=== PATIENT | male | born 1960 | race Caucasian/White ===

== ENCOUNTER 2019-04-04 01:27 | Emergency (ER) | payer MEDICAID ==
[~2019-04-04] VITALS: Ht 185.4 cm; Wt 181.8 kg
[~2019-04-04 01:27] MED LIST: HYDR-4353 PO; INSU100V2 SQ; LEVO100T9 PO; METO10TA3 PO; METO50TA16 PO; PIOG30TA71 PO; PRAV40TA3 PO
--- NOTE | 2019-04-04 01:41 | NUR ---
Dr. Jones notified of patient and patient's condition.
[2019-04-04] MEDS ORDERED: CALC667T6 PO (01:49)
[2019-04-04] MEDS ORDERED: FURO-150 PO (01:49)
[2019-04-04] MEDS ORDERED: HYDR-4069 PO (01:49)
[2019-04-04] MEDS ORDERED: LEVO150T8 PO (01:49)
[2019-04-04] MEDS ORDERED: INSU100I5 SQ (01:49)
[2019-04-04] MEDS ORDERED: CARV-50 PO (01:49)
[2019-04-04] MEDS ORDERED: ALLO100T PO (01:49)
[2019-04-04] MEDS ORDERED: CALC0.2511 PO (01:49)
[2019-04-04] MEDS ORDERED: HYDR-4353 PO (01:49)
[2019-04-04] MEDS ORDERED: ondansetron/PF 4mg/2ml inj IV ONE (02:25)
[2019-04-04] MEDS ORDERED: morphine 4 MG/ML inj SYRINge IV ONE (02:25)
[2019-04-04 02:39] LABS: BASOPHILS # (AUTO) 0.1 X10'3 (0-0.2); BASOPHILS % (AUTO) 0.7 % (0-1); EOSINOPHILS # (AUTO) 0.3 X10'3 (0-0.9); EOSINOPHILS % (AUTO) 3.7 % (0-6); HEMATOCRIT 23.1 % (42.0-52.0); HEMOGLOBIN 7.5 g/dl (14.0-17.9); LYMPHOCYTES # (AUTO) 1.2 X10'3 (1.1-4.8); LYMPHOCYTES % (AUTO) 16.9 % (21-51); MEAN CORPUSCULAR HEMOGLOBIN 30.7 PG (27.0-31.0); MEAN CORPUSCULAR HGB CONC 32.7 g/dL (33.0-36.5); MEAN CORPUSCULAR VOLUME 93.8 FL (78-98); MEAN PLATELET VOLUME 9.6 FL (7.4-10.4); MONOCYTES # (AUTO) 0.4 X10'3 (0-0.9); MONOCYTES % (AUTO) 5.9 % (2-12); NEUTROPHILS # (AUTO) 5.2 X10'3 (1.8-7.7); NEUTROPHILS % (AUTO) 72.8 % (42-75); PLATELET COUNT 190 X10'3 (140-440); RED BLOOD COUNT 2.46 X10'6 (4.70-6.10); RED CELL DISTRIBUTION WIDTH 14.2 % (11.5-14.5); WHITE BLOOD COUNT 7.2 X10'3 (4.5-11.0)
[2019-04-04 02:40] LABS: PARTIAL THROMBOPLASTIN TIME 32 SECONDS (22-32)
[2019-04-04 02:45] LABS: ALBUMIN 2.2 G/DL (3.4-5.0); ALBUMIN/GLOBULIN RATIO 0.5 (1.1-1.5); ALKALINE PHOSPHATASE 72 IU/L (46-116); ANION GAP 23 (8-16); ASPARTATE AMINO TRANSFERASE 8 U/L (10-37); BILIRUBIN,TOTAL 0.3 MG/DL (0.1-1.0); BLOOD UREA NITROGEN 142 MG/DL (7-18); CALCIUM 6.3 MG/DL (8.5-10.1); CHLORIDE 97 MMOL/L (99-107); GLUCOSE 118 MG/DL (70-104); POTASSIUM 4.4 MMOL/L (3.5-5.1); SODIUM 138 MMOL/L (135-145); TOTAL CARBON DIOXIDE 17.7 MMOL/L (24-32)
[2019-04-04 02:51] LABS: ALANINE AMINOTRANSFERASE < 6 U/L (12-78); BUN/CREATININE RATIO 5.8 (5.4-32.0); CREATININE 24.49 MG/DL (0.60-1.10); ETHANOL < 0.010 GM/DL (0.0-0.010); eGFR 2 ML/MIN
--- NOTE | 2019-04-04 03:05 | NUR ---
Spoke to patient's nephew Aleksandar at the patient's request. He is aware of the pending transfer to [facility].
--- NOTE | 2019-04-04 03:09 | NUR ---
Patient resting comfortably in bed and is updated on POC.
[2019-04-04] MEDS ORDERED: normal saline 1000ML IV soln IVB ONE (03:30)
[2019-04-04] MEDS ORDERED: morphine 4 MG/ML inj SYRINge IV PRN (03:35)
--- NOTE | 2019-04-04 04:18 | NUR ---
Patient's nephew Aleksandar updated that patient was unable to transfer to [facility] and will rather be transferred to [facility] in [place].
--- NOTE | 2019-04-04 04:38 | NUR ---
Patient sleeping comfortably and is in no distress.
--- NOTE | 2019-04-04 05:18 | NUR ---
Patient continues to sleep comfortably.
--- NOTE | 2019-04-04 05:46 | NUR ---
Patient awake and requests ice chips which are provided with Dr. Jones's approval. Patient updated on approximate transportation time. He has no other requests at this time.
--- NOTE | 2019-04-04 07:50 | NUR ---
pt had a witnessed seizure. pt was sitting up in bed. pt stated he felt hot and nausea. nasopharyngeal airway placed 8.0 1 mg ativan given. pt sunctioned. non-rebreather placed on pt. 02 sat 100%. Addendum: 04/04/19 at 0825 by LVLASTELIC seizure last 2-3 min broke with adm of ativan
[2019-04-04] MEDS ORDERED: LORazepam 2 mg/ml vial ONE (07:51)
[2019-04-04] MEDS ORDERED: levetiracetam inj 1,500 MG in normal saline 100ml IV soln 85 ML IV SCH (08:00)
[2019-04-04] MEDS ORDERED: LORazepam 2 mg/ml vial IV ONE (08:00)
--- NOTE | 2019-04-04 08:00 | NUR ---
seizure pads on bed
--- NOTE | 2019-04-04 08:06 | NUR ---
Contacted [facility] 14 min ETA
[2019-04-04] MEDS ORDERED: LevETIRAcetam 500 MG in NORMAL SALINE 100ml IV.SOLN IV ONE (08:10)
--- NOTE | 2019-04-04 08:10 | NUR ---
pt still in postictal state.
[2019-04-04 08:11] VITALS: BP 151/59
[2019-04-04] MEDS ORDERED: LevETIRAcetam 1,000MG in NORMAL SALINE 100ml IV.SOLN IV SCH (08:15)
[2019-04-04] MEDS ORDERED: LevETIRAcetam 1,000MG in NORMAL SALINE 100ml IV.SOLN IV ONE (08:16)
--- NOTE | 2019-04-04 08:22 | NUR ---
Susan from [facility] called wanting to know if transport was at bed side yet
--- NOTE | 2019-04-04 08:24 | NUR ---
called [facility] to inform them of the change in patient's condition. reported the recent seizure.
--- NOTE | 2019-04-04 08:35 | NUR ---
PT IS WAKING UP. FAMILY AT BEDSIDE
--- NOTE | 2019-04-04 08:46 | NUR ---
report given to [facility]
== END 2019-04-04 09:15 | disposition short-term general hospital (02) ==
LOC: ER 01:27
DX: S06.5X0A Traumatic subdural hemorrhage without loss of consciousness, initial encounter (principal); E10.65 Type 1 diabetes mellitus with hyperglycemia; E07.9 Disorder of thyroid, unspecified; D64.9 Anemia, unspecified; I12.0 Hypertensive chronic kidney disease with stage 5 chronic kidney disease or end stage renal disease; E10.22 Type 1 diabetes mellitus with diabetic chronic kidney disease; N18.6 End stage renal disease; E78.00 Pure hypercholesterolemia, unspecified; Z99.2 Dependence on renal dialysis; Z98.890 Other specified postprocedural states; Z88.1 Allergy status to other antibiotic agents; Z79.899 Other long term (current) drug therapy; V29.9XXA Motorcycle rider (driver) (passenger) injured in unspecified traffic accident, initial encounter; Y93.89 Activity, other specified; Y92.488 Other paved roadways as the place of occurrence of the external cause; Y99.8 Other external cause status
CPT/HCPCS: 36415; 70450; 71045; 80053; 80320; 82948; 85025; 85610; 85730; 93005; 96365; 96375; 96376; 99291; J1953; J2060; J2270; J2405; J7030

== ENCOUNTER 2019-12-08 11:42 | Emergency (ER) | payer MEDICAID ==
[~2019-12-08] VITALS: Ht 185.4 cm; Wt 163.6 kg
[~2019-12-08 11:42] MED LIST changes: +ALLO100T PO; +CALC0.2511 PO; +CALC667T6 PO; +CARV-50 PO; +FURO-150 PO; +HYDR-4069 PO; +INSU100I5 SQ; -INSU100V2 SQ; -LEVO100T9 PO; +LEVO150T8 PO; -METO10TA3 PO; -METO50TA16 PO; -PIOG30TA71 PO; -PRAV40TA3 PO
--- NOTE | 2019-12-08 13:39 | NUR ---
Dr. Peguero at bedside.
[2019-12-08] MEDS ORDERED: metoclopramide 5 mg/ml inj IV ONE (13:40)
[2019-12-08] MEDS ORDERED: morphine 4 MG/ML inj SYRINge IV ONE (14:45)
--- NOTE | 2019-12-08 14:45 | NUR ---
DR. REID MADE AWARE ABOUT PATIENT'S BP 200'S SBP RECHECKED 196/136,PATIENT TEARFUL C/O HEADACHE.
--- NOTE | 2019-12-08 14:50 | NUR ---
pt to ct.
[2019-12-08] MEDS ORDERED: haloperidol lactate 5mg/ml inj IV ONE (15:15)
[2019-12-08] MEDS ORDERED: haloperidol lactate 5mg/ml inj IM ONE (15:20)
[2019-12-08] MEDS ORDERED: METO-292 PO (15:28)
[2019-12-08 16:04] VITALS: BP 191/88
== END 2019-12-08 16:07 | disposition home or self-care (01) ==
LOC: ER 11:42
DX: G43.909 Migraine, unspecified, not intractable, without status migrainosus (principal); R11.10 Vomiting, unspecified; I12.0 Hypertensive chronic kidney disease with stage 5 chronic kidney disease or end stage renal disease; E11.22 Type 2 diabetes mellitus with diabetic chronic kidney disease; N18.6 End stage renal disease; Z99.2 Dependence on renal dialysis; E78.00 Pure hypercholesterolemia, unspecified; Z86.2 Personal history of diseases of the blood and blood-forming organs and certain disorders involving the immune mechanism; Z98.890 Other specified postprocedural states; Z79.2 Long term (current) use of antibiotics; Z79.899 Other long term (current) drug therapy
CPT/HCPCS: 70450; 96372; 96374; 96375; 99285; J1630; J2270; J2765